=== PATIENT | female | born 1955 | race Asian ===

== ENCOUNTER → 2016-07-22 | Outpatient (CLI) | payer OTHER ==
[~2016-07-22] MED LIST: CELE100C82 PO; VERA240C2 PO
[2016-07-22 12:58] LABS: Basophils # (auto) 0 uL; Basophils % (auto) 0.9 % (0.0-2.0); Eosinophils # (auto) 0.2 uL; Eosinophils % (auto) 4.9 % (0.0-7.0); Hematocrit 42.2 % (36.0-46.0); Hemoglobin 14.3 g/dL (12.2-16.2); Lymphocytes # (auto) 1.8 uL; Lymphocytes % (auto) 40.5 % (10.0-50.0); Mean Corpuscular Hemoglobin 30.1 pg (28.0-32.0); Mean Corpuscular Hgb Conc. 33.9 g/dL (32.0-36.0); Mean Corpuscular Volume 88.7 fL (80.0-100.0); Monocytes # (auto) 0.2 uL; Monocytes % (auto) 5.7 % (0.0-12.0); Neutrophils # (auto) 2.1 uL; Platelet Count (auto) 289 10^3/uL (140-450); Red Cell Distribution Width 13.2 % (11.6-16.0); White Blood Cell 4.3 10^3/uL (4.4-10.8)
[2016-07-22 13:21] LABS: Urine Bilirubin Negative (Negative); Urine Blood Negative /uL (Negative); Urine Color Yellow (Yellow); Urine Glucose Normal (Normal); Urine Ketone Negative (Negative); Urine Nitrite Negative (Negative); Urine Urobilinogen Normal (Negative); Urine pH 6.5 (5.0-8.0)
[2016-07-22 13:26] LABS: Albumin 3.9 g/dL (3.4-5.0); BUN/Creatinine Ratio 22.4; Bilirubin, Direct 0.2 mg/dL (0-0.2); Bilirubin, Total 0.6 mg/dL (0.2-1.0); Calcium 9.1 mg/dL (8.5-10.1); Potassium 4.3 mmol/L (3.5-5.1)
== END | disposition home or self-care (01) ==
LOC: LAB 08:35
PROVIDERS: ATTEND Internal Medicine Cardiovascular Disease
DX: I10 Essential (primary) hypertension (principal); E78.00 Pure hypercholesterolemia, unspecified; K74.1 Hepatic sclerosis; E11.9 Type 2 diabetes mellitus without complications; E03.9 Hypothyroidism, unspecified; D64.9 Anemia, unspecified; E55.9 Vitamin D deficiency, unspecified; N39.0 Urinary tract infection, site not specified
CPT/HCPCS: 36415; 80048; 80061; 80076; 81003; 82306; 83036; 84443; 85025

== ENCOUNTER → 2016-09-09 | Outpatient (CLI) | payer OTHER ==
[2016-09-09 12:50] LABS: Albumin 4.1 g/dL (3.4-5.0); Bilirubin, Direct 0.2 mg/dL (0-0.2); Bilirubin, Total 0.7 mg/dL (0.2-1.0); Total Protein 7.9 g/dL (6.4-8.2)
== END | disposition home or self-care (01) ==
LOC: LAB 08:25
PROVIDERS: ATTEND Internal Medicine Cardiovascular Disease
DX: E78.00 Pure hypercholesterolemia, unspecified (principal); K74.1 Hepatic sclerosis
CPT/HCPCS: 36415; 80061; 80076

== ENCOUNTER → 2016-12-10 | Outpatient (CLI) | payer OTHER ==
[2016-12-10 12:43] LABS: Albumin 4.1 g/dL (3.4-5.0); Bilirubin, Direct 0.2 mg/dL (0-0.2); Bilirubin, Total 0.7 mg/dL (0.2-1.0); Total Protein 8.4 g/dL (6.4-8.2)
== END | disposition home or self-care (01) ==
LOC: LAB 08:30
PROVIDERS: ATTEND Internal Medicine Cardiovascular Disease
DX: E78.00 Pure hypercholesterolemia, unspecified (principal); K74.1 Hepatic sclerosis
CPT/HCPCS: 36415; 80061; 80076

== ENCOUNTER → 2017-07-27 | Outpatient (CLI) | payer OTHER ==
[2017-07-27 14:12] LABS: Albumin 3.7 g/dL (3.4-5.0); Bilirubin, Direct 0.1 mg/dL (0-0.2); Bilirubin, Total 0.4 mg/dL (0.2-1.0); Total Protein 7.5 g/dL (6.4-8.2)
== END | disposition home or self-care (01) ==
LOC: LAB 08:00
PROVIDERS: ATTEND Internal Medicine
DX: R94.5 Abnormal results of liver function studies (principal); I10 Essential (primary) hypertension; E11.9 Type 2 diabetes mellitus without complications; E78.00 Pure hypercholesterolemia, unspecified
CPT/HCPCS: 36415; 80076

== ENCOUNTER → 2018-01-13 | Outpatient (CLI) | payer OTHER ==
[2018-01-13 12:26] LABS: Urine Blood Negative /uL (Negative); Urine Specific Gravity 1.019 (1.001-1.035)
[2018-01-13 12:30] LABS: Albumin 3.7 g/dL (3.4-5.0); BUN/Creatinine Ratio 17.4; Calcium 8.3 mg/dL (8.5-10.1)
[2018-01-13 12:33] LABS: Bilirubin, Total 0.6 mg/dL (0.2-1.0); Total Protein 7.7 g/dL (6.4-8.2)
[2018-01-13 12:36] LABS: Basophils # (auto) 0 uL; Eosinophils # (auto) 0.2 uL; Eosinophils % (auto) 5.6 % (0.0-7.0); Hematocrit 41.3 % (36.0-46.0); Hemoglobin 14.1 g/dL (12.2-16.2); Lymphocytes # (auto) 1.4 uL; Lymphocytes % (auto) 32.5 % (10.0-50.0); Mean Corpuscular Hemoglobin 31.1 pg (28.0-32.0); Mean Corpuscular Hgb Conc. 34.1 g/dL (32.0-36.0); Mean Corpuscular Volume 91.1 fL (80.0-100.0); Monocytes # (auto) 0.3 uL; Monocytes % (auto) 7.1 % (0.0-12.0); Neutrophils # (auto) 2.3 uL; Neutrophils % (auto) 53.8 % (37.0-80.0); Nucleated Red Blood Cells % 0.4 %; Platelet Count (auto) 249 10^3/uL (140-450); Red Blood Cells 4.53 10^6/uL (4.0-5.20); Red Cell Distribution Width 13.2 % (11.8-14.3); White Blood Cell 4.4 10^3/uL (4.4-10.8)
[2018-01-13 12:41] LABS: Free T4 (Free Thyroxine) 1.12 ng/dL (0.89-1.76)
== END | disposition home or self-care (01) ==
LOC: LAB 08:49
PROVIDERS: ATTEND Internal Medicine
DX: E78.5 Hyperlipidemia, unspecified (principal); K74.1 Hepatic sclerosis; I10 Essential (primary) hypertension; E03.9 Hypothyroidism, unspecified; E55.9 Vitamin D deficiency, unspecified; E11.9 Type 2 diabetes mellitus without complications; D51.9 Vitamin B12 deficiency anemia, unspecified; D64.9 Anemia, unspecified; N39.0 Urinary tract infection, site not specified
CPT/HCPCS: 36415; 80053; 80061; 81003; 82306; 82607; 83036; 84439; 84443; 85025; 87086

== ENCOUNTER → 2018-02-10 | Outpatient (CLI) | payer OTHER | END | disposition home or self-care (01) | LOC: Rad HDHVI 09:34 | PROVIDERS: ATTEND Internal Medicine | DX: M85.9 Disorder of bone density and structure, unspecified (principal) | CPT/HCPCS: 77078 ==

== ENCOUNTER → 2019-04-09 | Outpatient (CLI) | payer OTHER ==
[~2019-04-09] MED LIST changes: +LOSA-69 PO
[2019-04-09 09:15] VITALS: BP 130/75
[2019-04-09 09:45] VITALS: BP 149/75
--- NOTE | 2019-04-09 09:45 | NUR ---
Pre-Op Discharge Summary: See e-MAR for any medications given for this visit. Pre-op orders received and carried out per MD of EKG, LABS and chest xrays. Patient given a copy of EKG with instructions to go to [facility] out patient for further follow up care.
[2019-04-09 12:51] LABS: Basophils # (auto) 0 uL; Basophils % (auto) 0.7 % (0.0-2.0); Eosinophils # (auto) 0.1 uL; Eosinophils % (auto) 2.6 % (0.0-7.0); Hematocrit 43.4 % (36.0-46.0); Hemoglobin 14.9 g/dL (12.2-16.2); Lymphocytes # (auto) 1.4 uL; Lymphocytes % (auto) 25.2 % (10.0-50.0); Mean Corpuscular Hemoglobin 30.8 pg (28.0-32.0); Mean Corpuscular Hgb Conc. 34.2 g/dL (32.0-36.0); Mean Corpuscular Volume 90.1 fL (80.0-100.0); Monocytes # (auto) 0.3 uL; Monocytes % (auto) 4.8 % (0.0-12.0); Neutrophils # (auto) 3.7 uL; Neutrophils % (auto) 66.7 % (37.0-80.0); Platelet Count (auto) 218 10^3/uL (140-450); Red Blood Cells 4.82 10^6/uL (4.0-5.20); White Blood Cell 5.6 10^3/uL (4.4-10.8)
[2019-04-09 13:03] LABS: INR 1.01 (0.9-1.15); Partial Thromboplastin Time 28.8 sec (23.64-32.05)
[2019-04-09 13:27] LABS: Potassium 3.8 mmol/L (3.5-5.1)
[2019-04-09 13:58] LABS: BUN/Creatinine Ratio 24.3; Calcium 9.3 mg/dL (8.5-10.1)
== END | disposition home or self-care (01) ==
LOC: Rad HDHVI 08:55
PROVIDERS: ATTEND Internal Medicine Cardiovascular Disease
DX: Z01.812 Encounter for preprocedural laboratory examination (principal); I70.0 Atherosclerosis of aorta; I51.7 Cardiomegaly; I10 Essential (primary) hypertension; E78.5 Hyperlipidemia, unspecified; J90 Pleural effusion, not elsewhere classified
CPT/HCPCS: 36415; 80048; 85025; 85610; 85730; 93005; G0463; 71046

== ENCOUNTER 2019-04-12 07:20 | Day surgery (SDC) | payer OTHER ==
[~2019-04-12] VITALS: Ht 152.4 cm; Wt 54.4 kg
[~2019-04-12 07:20] MED LIST changes: -CELE100C82 PO; -VERA240C2 PO
[2019-04-12] MEDS ORDERED: IOHEXOL 350 MG/ML 100ML IJ ONE (10:44)
[2019-04-12] MEDS ORDERED: MIDAZOLAM HCL 1MG/1ML-2 ML VIAL ONE (10:44)
[2019-04-12] MEDS ORDERED: SODIUM CHL 0.9% 0 ML ONE (10:44)
[2019-04-12] MEDS ORDERED: fentaNYL CITRATE 100 MCG/2 ML VL ONE (10:44)
[2019-04-12] MEDS ORDERED: LIDOCAINE 2%HCL (LOCAL ANESTH.) INJ 20ML MDV ONE (10:44)
[2019-04-12] MEDS ORDERED: ANGIOMAX 250 MG VIAL IV ONE (10:44)
[2019-04-12] MEDS ORDERED: HYDROcodone-ACET 5/325MG TAB PO PRN (12:15)
[2019-04-12] MEDS ORDERED: SODIUM CHL 0.9% 500 ML IV ONE (12:15)
[2019-04-12] MEDS ORDERED: ONDANSETRON HCL 4 MG/2 ML VIAL IV PRN (12:15)
[2019-04-12] MEDS ORDERED: ACETAMINOPHEN 500 MG TAB PO PRN (12:15)
== END 2019-04-12 13:34 | disposition home or self-care (01) ==
LOC: CATH 07:20
PROVIDERS: ATTEND Internal Medicine Cardiovascular Disease
DX: I42.2 Other hypertrophic cardiomyopathy (principal); I10 Essential (primary) hypertension; E78.5 Hyperlipidemia, unspecified; I20.9 Angina pectoris, unspecified; Z86.73 Personal history of transient ischemic attack (TIA), and cerebral infarction without residual deficits
CPT/HCPCS: 93458; C1760; C1894; J1644; J2250; J3010; J7030; Q9967; 99152; 99153

== ENCOUNTER → 2020-05-13 | Outpatient (CLI) | payer OTHER ==
[2020-05-13 11:30] LABS: Basophils # (auto) 0 10 ^3/uL (0-0.2); Eosinophils # (auto) 0.2 10 ^3/uL (0-0.8); Eosinophils % (auto) 4.8 % (0.0-7.0); Hematocrit 38.5 % (36.0-46.0); Hemoglobin 13.5 g/dL (12.2-16.2); Lymphocytes # (auto) 1.5 10 ^3/uL (0.4-5.4); Lymphocytes % (auto) 33.5 % (10.0-50.0); Mean Corpuscular Hemoglobin 31.1 pg (28.0-32.0); Monocytes # (auto) 0.3 10 ^3/uL (0-1.3); Monocytes % (auto) 6.6 % (0.0-12.0); Neutrophils # (auto) 2.4 10 ^3/uL (1.6-8.6); Neutrophils % (auto) 54.1 % (37.0-80.0); Nucleated Red Blood Cells % 0.1 %; Platelet Count (auto) 239 10^3/uL (140-450); Red Blood Cells 4.32 10^6/uL (4.0-5.20); Red Cell Distribution Width 12.7 % (11.8-14.3); White Blood Cell 4.4 10^3/uL (4.4-10.8)
[2020-05-13 11:38] LABS: Urine Blood Negative /uL (Negative); Urine Specific Gravity 1.013 (1.001-1.035)
[2020-05-13 11:44] LABS: Potassium 3.7 mmol/L (3.5-5.1)
[2020-05-13 11:50] LABS: Free T4 (Free Thyroxine) 1.17 ng/dL (0.89-1.76)
[2020-05-13 11:59] LABS: Albumin 3.7 g/dL (3.4-5.0); BUN/Creatinine Ratio 14.5; Bilirubin, Total 0.7 mg/dL (0.2-1.0); Calcium 8.4 mg/dL (8.5-10.1); Total Protein 7.6 g/dL (6.4-8.2)
== END | disposition home or self-care (01) ==
LOC: LAB 08:39
PROVIDERS: ATTEND Internal Medicine Cardiovascular Disease
DX: D51.3 Other dietary vitamin B12 deficiency anemia (principal); I10 Essential (primary) hypertension; E11.9 Type 2 diabetes mellitus without complications; E55.9 Vitamin D deficiency, unspecified; D64.9 Anemia, unspecified; R00.2 Palpitations; R53.1 Weakness; R30.0 Dysuria
CPT/HCPCS: 36415; 80053; 80061; 81003; 82306; 82607; 83036; 84439; 84443; 85025

== ENCOUNTER → 2021-11-20 | Outpatient (CLI) | payer OTHER ==
[2021-11-20 16:29] LABS: Basophils # (auto) 0.1 10 ^3/uL (0-0.2); Eosinophils # (auto) 0.2 10 ^3/uL (0-0.8); Eosinophils % (auto) 3.6 % (0.0-7.0); Hematocrit 45.9 % (36.0-46.0); Hemoglobin 15.3 g/dL (12.2-16.2); Lymphocytes # (auto) 1.6 10 ^3/uL (0.4-5.4); Lymphocytes % (auto) 27.6 % (10.0-50.0); Mean Corpuscular Hemoglobin 30.1 pg (28.0-32.0); Mean Corpuscular Hgb Conc. 33.3 g/dL (32.0-36.0); Mean Corpuscular Volume 90.3 fL (80.0-100.0); Monocytes # (auto) 0.4 10 ^3/uL (0-1.3); Monocytes % (auto) 6.2 % (0.0-12.0); Neutrophils # (auto) 3.6 10 ^3/uL (1.6-8.6); Neutrophils % (auto) 61.6 % (37.0-80.0); Red Blood Cells 5.08 10^6/uL (4.0-5.20); Red Cell Distribution Width 12.5 % (11.8-14.3); White Blood Cell 5.9 10^3/uL (4.4-10.8)
[2021-11-20 16:37] LABS: Urine Blood Negative /uL (Negative); Urine Specific Gravity 1.007 (1.001-1.035)
[2021-11-20 16:46] LABS: Free T4 (Free Thyroxine) 1.33 ng/dL (0.89-1.76)
[2021-11-20 16:58] LABS: Albumin 4.4 g/dL (3.4-5.0); Calcium 9.9 mg/dL (8.5-10.1); Potassium 4.3 mmol/L (3.5-5.1)
[2021-11-20 17:11] LABS: BUN/Creatinine Ratio 16.9; Bilirubin, Total 0.7 mg/dL (0.2-1.0); Total Protein 8.6 g/dL (6.4-8.2)
== END | disposition home or self-care (01) ==
LOC: LAB 13:03
PROVIDERS: ATTEND Internal Medicine Cardiovascular Disease
DX: I10 Essential (primary) hypertension (principal); E55.9 Vitamin D deficiency, unspecified; D64.9 Anemia, unspecified; D51.3 Other dietary vitamin B12 deficiency anemia; E11.9 Type 2 diabetes mellitus without complications; R00.2 Palpitations; R53.1 Weakness; R30.0 Dysuria
CPT/HCPCS: 36415; 80053; 80061; 81003; 82306; 82607; 83036; 84439; 84443; 85025

== ENCOUNTER → 2021-12-14 | Outpatient (CLI) | payer MEDICARE, OTHER | END | disposition home or self-care (01) | LOC: Rad HDHVI 15:41 | PROVIDERS: ATTEND Internal Medicine Cardiovascular Disease | DX: I08.3 Combined rheumatic disorders of mitral, aortic and tricuspid valves (principal); R00.2 Palpitations; R00.1 Bradycardia, unspecified | CPT/HCPCS: 93306 ==

== ENCOUNTER → 2022-01-25 | Outpatient (CLI) | payer MEDICARE, OTHER ==
[~2022-01-25] VITALS: Ht 152.4 cm; Wt 49.9 kg
== END | disposition home or self-care (01) ==
LOC: Rad HDHVI 09:27
PROVIDERS: ATTEND Internal Medicine Cardiovascular Disease
DX: I35.0 Nonrheumatic aortic (valve) stenosis (principal); R00.2 Palpitations; I10 Essential (primary) hypertension; R00.1 Bradycardia, unspecified; E78.00 Pure hypercholesterolemia, unspecified
CPT/HCPCS: 78452; 93017; 96374; A9500

== ENCOUNTER → 2023-04-26 | Outpatient (CLI) | payer MEDICARE, OTHER ==
[~2023-04-26] MED LIST changes: -LOSA-69 PO; +LOSA50TA46 PO
== END | disposition home or self-care (01) ==
LOC: Rad HDHVI 08:38
PROVIDERS: ATTEND Internal Medicine Cardiovascular Disease
DX: I08.8 Other rheumatic multiple valve diseases (principal); I11.9 Hypertensive heart disease without heart failure; R06.02 Shortness of breath
CPT/HCPCS: 93306

== ENCOUNTER → 2023-09-14 | Outpatient (CLI) | payer MEDICARE, OTHER ==
[~2023-09-14] MED LIST changes: +GLUC1TAB18 PO; +LOSA-534 PO; -LOSA50TA46 PO; +MAGN400T40 PO
[2023-09-14 09:30] VITALS: BP 140/70; PULSE 48; RESP 18; O2SAT 97
[2023-09-14 09:45] VITALS: BP 140/65; PULSE 52; RESP 18; O2SAT 97
== END | disposition home or self-care (01) ==
LOC: Rad HDHVI 08:55
PROVIDERS: ATTEND Internal Medicine Cardiovascular Disease
DX: Z01.818 Encounter for other preprocedural examination (principal); I51.7 Cardiomegaly; I49.5 Sick sinus syndrome; I42.1 Obstructive hypertrophic cardiomyopathy; J92.9 Pleural plaque without asbestos; R00.1 Bradycardia, unspecified; R94.31 Abnormal electrocardiogram [ECG] [EKG]
CPT/HCPCS: 71046; 93005; G0463

== ENCOUNTER 2023-09-15 06:34 | Day surgery (SDC) | payer MEDICARE, OTHER ==
[2023-09-14 11:58] LABS: Basophils # (auto) 0.1 10 ^3/uL (0-0.2); Basophils % (auto) 1.2 % (0.0-2.0); Eosinophils # (auto) 0.2 10 ^3/uL (0-0.8); Hematocrit 31.7 % (36.0-46.0); Hemoglobin 9.9 g/dL (12.2-16.2); Lymphocytes # (auto) 1.5 10 ^3/uL (0.4-5.4); Mean Corpuscular Hemoglobin 24.3 pg (28.0-32.0); Mean Corpuscular Hgb Conc. 31.3 g/dL (32.0-36.0); Mean Corpuscular Volume 77.4 fL (80.0-100.0); Monocytes # (auto) 0.3 10 ^3/uL (0-1.3); Monocytes % (auto) 6.5 % (0.0-12.0); Neutrophils # (auto) 2.4 10 ^3/uL (1.6-8.6); Neutrophils % (auto) 54.3 % (37.0-80.0); Nucleated Red Blood Cells % 0.1 %; Red Cell Distribution Width 15.2 % (11.8-14.3); White Blood Cell 4.4 10^3/uL (4.4-10.8)
[2023-09-14 12:14] LABS: INR 1.02 (0.9-1.15); Partial Thromboplastin Time 25.9 SEC (24.5-34.5); Prothrombin Time 10.8 sec (9.3-11.8)
[2023-09-14 12:32] LABS: Chloride 108 mmol/L (98-107); Potassium 4.3 mmol/L (3.5-5.1); Sodium 141 mmol/L (136-145)
[2023-09-14 12:33] LABS: Anion Gap 1 (5-15); Carbon Dioxide 32 mmol/L (20-30)
[2023-09-14 12:34] LABS: Calcium 9.7 mg/dL (8.5-10.1)
[2023-09-14 12:38] LABS: BUN/Creatinine Ratio 18.2 (10.0-20.0); Blood Urea Nitrogen 14 mg/dL (9-23); Glucose 101 mg/dL (74-106)
[~2023-09-15] VITALS: Ht 157.5 cm; Wt 50.8 kg
[2023-09-15] VITALS (7 sets, daily range): BP systolic 135–140; BP diastolic 66–80; PULSE 60–72; RESP 12–18; O2SAT 95–96
[2023-09-15] MEDS ORDERED: VANCOMYCIN HCL 1000 MG VL ONE (09:05)
[2023-09-15] MEDS ORDERED: fentaNYL CITRATE 100 MCG/2 ML VL ONE (09:05)
[2023-09-15] MEDS ORDERED: VANCOMYCIN 1GM/200ML 200 ML IV ONE (09:06)
[2023-09-15] MEDS ORDERED: MIDAZOLAM HCL 2MG/2ML 2ml VIAL (1mg/ml) ONE (09:06)
[2023-09-15] MEDS ORDERED: LIDOCAINE 2%HCL (LOCAL ANESTH.) INJ 20ML MDV ONE (09:06)
== END 2023-09-15 11:58 | disposition home or self-care (01) ==
LOC: CATH 06:34
PROVIDERS: ATTEND Internal Medicine Cardiovascular Disease
DX: I48.91 Unspecified atrial fibrillation (principal); Z79.899 Other long term (current) drug therapy; Z98.890 Other specified postprocedural states
CPT/HCPCS: 33208; 36415; 71045; 80048; 85025; 85610; 85730; 93005; C1785; C1898; J2250; J3010; J3370; J7030; 99152; 99153

== ENCOUNTER → 2023-09-16 | Outpatient (CLI) | payer MEDICARE, OTHER | END | disposition home or self-care (01) | LOC: Rad HDHVI 10:29 | PROVIDERS: ATTEND Internal Medicine Cardiovascular Disease | DX: Z01.818 Encounter for other preprocedural examination (principal); R91.8 Other nonspecific abnormal finding of lung field | CPT/HCPCS: 71046 ==

== ENCOUNTER 2023-12-27 13:37 | Inpatient (IN) | payer MEDICARE, OTHER ==
[~2023-12-27] VITALS: Ht 152.4 cm; Wt 57.8 kg
[2023-12-27] MEDS ORDERED: ASPI-325 PO (20:46)
[2023-12-27 21:47] LABS: Basophils # (auto) 0 10 ^3/uL (0-0.2); Eosinophils # (auto) 0 10 ^3/uL (0-0.8); Hemoglobin 8.5 g/dL (12.2-16.2); Lymphocytes # (auto) 1.1 10 ^3/uL (0.4-5.4); Nucleated Red Blood Cells % 0.1 %
[2023-12-27 21:49] LABS: Basophils % (auto) 0.1 % (0.0-2.0); Eosinophils % (auto) 0.4 % (0.0-7.0); Hematocrit 25.8 % (36.0-46.0); Lymphocytes % (auto) 15.2 % (10.0-50.0); Mean Corpuscular Hemoglobin 25.2 pg (28.0-32.0); Mean Corpuscular Volume 76.2 fL (80.0-100.0); Monocytes # (auto) 0.6 10 ^3/uL (0-1.3); Monocytes % (auto) 7.8 % (0.0-12.0); Neutrophils # (auto) 5.6 10 ^3/uL (1.6-8.6); Neutrophils % (auto) 76.5 % (37.0-80.0); Platelet Count (auto) 444 10^3/uL (140-450); Red Blood Cells 3.38 10^6/uL (4.0-5.20); White Blood Cell 7.3 10^3/uL (4.4-10.8)
[2023-12-27 21:51] LABS: Red Cell Distribution Width 22.6 % (11.8-14.3)
[2023-12-27 22:10] LABS: Alanine Aminotransferase 36 U/L (7-40); Albumin 3.4 g/dL (3.2-4.8); Alkaline Phosphatase 252 U/L (46-116); Anion Gap 4 (5-15); Aspartate Aminotransferase 34 U/L (13-40); BUN/Creatinine Ratio 26.8 (10.0-20.0); Bilirubin, Total 0.4 mg/dL (0.2-1.0); Blood Urea Nitrogen 15 mg/dL (9-23); Calcium 8.3 mg/dL (8.7-10.4); Carbon Dioxide 25 mmol/L (20-30); Chloride 96 mmol/L (98-107); Glucose 105 mg/dL (74-106); Potassium 3.9 mmol/L (3.5-5.1); Sodium 125 mmol/L (136-145); Total Protein 5.4 g/dL (5.7-8.2)
[2023-12-27 22:20] LABS: INR 1.03 (0.9-1.15); Prothrombin Time 10.9 sec (9.3-11.8)
[2023-12-27 23:02] VITALS: BP 140/80; PULSE 83; PULSE 85; RESP 18; RESP 19; TEMP 98; O2SAT 96; O2SAT 98
[2023-12-28] VITALS (9 sets, daily range): BP systolic 116–146; BP diastolic 63–91; PULSE 73–84; RESP 16–20; TEMP 97.7–98.6; O2SAT 96–98
[2023-12-28 01:49] LABS: Urine Bacteria None Seen /hpf (None Seen)
[2023-12-28 01:58] LABS: Urine Blood Negative /uL (Negative); Urine Clarity Clear (Clear); Urine Color Light-Yellow (Yellow); Urine Protein, UAD Negative (Negative); Urine Specific Gravity 1.007 (1.001-1.035); Urine Urobilinogen Normal (Negative); Urine WBC 1 /hpf (0 - 5)
[2023-12-28] MEDS ORDERED: ONDANSETRON HCL 4 MG/2 ML VIAL IV PRN (04:30)
[2023-12-28] MEDS: SODIUM CHLORIDE 0.9% 1,000 ML IV SCH (06:31)
[2023-12-28 08:29] LABS: Basophils # (auto) 0 10 ^3/uL (0-0.2); Basophils % (auto) 0.3 % (0.0-2.0); Eosinophils # (auto) 0 10 ^3/uL (0-0.8); Hemoglobin 8.4 g/dL (12.2-16.2); Monocytes # (auto) 0.5 10 ^3/uL (0-1.3)
[2023-12-28 08:30] LABS: Eosinophils % (auto) 0.4 % (0.0-7.0); Lymphocytes % (auto) 16.9 % (10.0-50.0); Mean Corpuscular Hemoglobin 25.4 pg (28.0-32.0); Mean Corpuscular Hgb Conc. 33.4 g/dL (32.0-36.0); Mean Corpuscular Volume 76.1 fL (80.0-100.0); Monocytes % (auto) 8.1 % (0.0-12.0); Neutrophils # (auto) 4.6 10 ^3/uL (1.6-8.6); Neutrophils % (auto) 74.3 % (37.0-80.0); Platelet Count (auto) 426 10^3/uL (140-450); Red Blood Cells 3.29 10^6/uL (4.0-5.20); White Blood Cell 6.2 10^3/uL (4.4-10.8)
[2023-12-28] MEDS: GASTROGRAFIN 120 ML SOL ONE (08:35)
[2023-12-28 08:46] LABS: Alanine Aminotransferase 33 U/L (7-40); Albumin 3.2 g/dL (3.2-4.8); Alkaline Phosphatase 238 U/L (46-116); Anion Gap 7 (5-15); Aspartate Aminotransferase 27 U/L (13-40); Bilirubin, Total 0.4 mg/dL (0.2-1.0); Blood Urea Nitrogen 12 mg/dL (9-23); Calcium 8.5 mg/dL (8.7-10.4); Carbon Dioxide 24 mmol/L (20-30); Chloride 100 mmol/L (98-107); Glucose 86 mg/dL (74-106); Potassium 4.3 mmol/L (3.5-5.1); Total Protein 5.2 g/dL (5.7-8.2)
[2023-12-28 08:54] LABS: Sodium 131 mmol/L (136-145)
[2023-12-28 08:59] LABS: Free T3 2.03 pg/mL (2.3-4.2)
[2023-12-28 09:00] LABS: Free T4 (Free Thyroxine) 1.26 ng/dL (0.89-1.76)
[2023-12-28 09:05] LABS: % Iron Saturation 5.5 % (15-50)
[2023-12-28] MEDS: LEVOTHYROXINE SODIUM 100 MCG/5 ML INJ IV ONE (11:31)
[2023-12-28] MEDS: IRON SUCROSE COMPLEX 100 ML IV SCH (13:12)
[2023-12-28] MEDS: PIPERACILLIN-TAZOB 3.375GM 100 ML IV SCH (14:40)
[2023-12-28] MEDS ORDERED: PIPERACILLIN-TAZOB 3.375GM 100 ML IV SCH (18:00)
[2023-12-29 01:00] VITALS: BP 138/73; PULSE 83; RESP 16; TEMP 98.7; O2SAT 95
[2023-12-29 05:00] VITALS: BP 124/66; PULSE 81; RESP 18; TEMP 98.6; O2SAT 96
[2023-12-29] MEDS: PANTOPRAZOLE 40 MG/10 ML VIAL INJ IV SCH (08:42)
[2023-12-29] MEDS: ENOXAPARIN SOD 40 MG/0.4 ML SYRINGE SC SCH (08:43)
[2023-12-29 09:05] VITALS: BP 132/86; PULSE 82; RESP 16; TEMP 98.6; O2SAT 97
[2023-12-29 09:35] LABS: Basophils # (auto) 0 10 ^3/uL (0-0.2); Basophils % (auto) 0.3 % (0.0-2.0); Eosinophils # (auto) 0 10 ^3/uL (0-0.8); Eosinophils % (auto) 0.2 % (0.0-7.0); Lymphocytes # (auto) 0.8 10 ^3/uL (0.4-5.4); Monocytes # (auto) 0.4 10 ^3/uL (0-1.3); Neutrophils # (auto) 5.5 10 ^3/uL (1.6-8.6); Nucleated Red Blood Cells % 0.1 %; White Blood Cell 6.8 10^3/uL (4.4-10.8)
[2023-12-29 09:37] LABS: Hematocrit 26.5 % (36.0-46.0); Hemoglobin 8.7 g/dL (12.2-16.2); Lymphocytes % (auto) 12.1 % (10.0-50.0); Mean Corpuscular Hemoglobin 25.4 pg (28.0-32.0); Mean Corpuscular Hgb Conc. 32.7 g/dL (32.0-36.0); Mean Corpuscular Volume 77.7 fL (80.0-100.0); Monocytes % (auto) 5.8 % (0.0-12.0); Neutrophils % (auto) 81.6 % (37.0-80.0); Platelet Count (auto) 435 10^3/uL (140-450); Red Blood Cells 3.41 10^6/uL (4.0-5.20)
[2023-12-29 09:41] LABS: Chloride 100 mmol/L (98-107); Potassium 4.8 mmol/L (3.5-5.1); Sodium 135 mmol/L (136-145)
[2023-12-29 09:42] LABS: Anion Gap 10 (5-15); Carbon Dioxide 25 mmol/L (20-31)
[2023-12-29 09:43] LABS: Calcium 8.8 mg/dL (8.7-10.4); Red Cell Distribution Width 24.1 % (11.8-14.3)
[2023-12-29 09:47] LABS: Glucose 85 mg/dL (74-106)
[2023-12-29 09:48] LABS: BUN/Creatinine Ratio 22.2 (10.0-20.0); Blood Urea Nitrogen 12 mg/dL (9-23)
[2023-12-29] MEDS ORDERED: LOSARTAN POTASSIUM 50 MG TAB PO SCH (10:00)
[2023-12-29] MEDS: FLEET ENEMA(ADULT) 135 ML PR ONE ×2 (10:52→15:16)
[2023-12-29 13:18] VITALS: BP 141/82; PULSE 83; RESP 16; TEMP 98.2; O2SAT 96
[2023-12-29] MEDS: SODIUM FERR GLUC 62.5MG/5ML 110 ML IV ONE (15:54)
[2023-12-29] MEDS ORDERED: TPN PER PHARMACY 0 ML IV SCH (19:00)
[2023-12-29 20:00] VITALS: PULSE 124
[2023-12-29] MEDS ORDERED: DEXTROSE (50%) 50ML SYRG IV SCH (20:00)
[2023-12-29 21:00] VITALS: BP 134/85; PULSE 81; RESP 16; TEMP 97.5; O2SAT 97
[2023-12-29] MEDS: ACCU-CHEK COMFORT CURVE STRIP VI SCH (23:12)
[2023-12-29] MEDS: InsuLIN REG 1unit/0.01ml Soln (100units/ml) SC SCH (23:14)
[2023-12-30] VITALS (8 sets, daily range): BP systolic 122–144; BP diastolic 62–90; PULSE 61–86; RESP 13–22; TEMP 97–98.3; O2SAT 95–100
[2023-12-30] MEDS: AMINO ACID INFUSION IN D10W 1,000 ML IV ONE (00:08)
[2023-12-30] MEDS ORDERED: fentaNYL CITRATE 100 MCG/2 ML VL ONE (08:34)
[2023-12-30] MEDS ORDERED: DexAMETHasone SOD PHOS 10MG/1ML VIAL INJ ONE (08:38)
[2023-12-30] MEDS ORDERED: PROPOFOL 10 MG/ML 20 ML IV ONE (08:44)
[2023-12-30 09:06] LABS: Alanine Aminotransferase 19 U/L (7-40); Alkaline Phosphatase 201 U/L (46-116); Anion Gap 12 (5-15); Blood Urea Nitrogen 6 mg/dL (9-23); Calcium 8.5 mg/dL (8.7-10.4); Carbon Dioxide 18 mmol/L (20-31); Chloride 101 mmol/L (98-107); Glucose 83 mg/dL (74-106); Magnesium 2.4 mg/dL (1.6-2.6); Sodium 131 mmol/L (136-145); Triglycerides 135 mg/dL (< 150)
[2023-12-30 09:07] LABS: Albumin 2.9 g/dL (3.2-4.8); Aspartate Aminotransferase 17 U/L (13-40); Bilirubin, Total 0.4 mg/dL (0.2-1.0); Phosphorus 2.7 mg/dL (2.4-5.1)
[2023-12-30 09:08] LABS: Total Protein 5.2 g/dL (5.7-8.2)
[2023-12-30 12:03] LABS: Basophils # (auto) 0 10 ^3/uL (0-0.2); Basophils % (auto) 0.3 % (0.0-2.0); Eosinophils # (auto) 0 10 ^3/uL (0-0.8); Eosinophils % (auto) 0.3 % (0.0-7.0); Hematocrit 25.9 % (36.0-46.0); Hemoglobin 8.5 g/dL (12.2-16.2); Lymphocytes # (auto) 0.5 10 ^3/uL (0.4-5.4); Lymphocytes % (auto) 7.9 % (10.0-50.0); Mean Corpuscular Hemoglobin 25.7 pg (28.0-32.0); Mean Corpuscular Hgb Conc. 32.8 g/dL (32.0-36.0); Mean Corpuscular Volume 78.4 fL (80.0-100.0); Monocytes # (auto) 0.2 10 ^3/uL (0-1.3); Monocytes % (auto) 2.6 % (0.0-12.0); Neutrophils % (auto) 88.9 % (37.0-80.0); Nucleated Red Blood Cells % 0.3 %; Platelet Count (auto) 469 10^3/uL (140-450); White Blood Cell 6.7 10^3/uL (4.4-10.8)
[2023-12-30 12:05] LABS: Red Cell Distribution Width 23.4 % (11.8-14.3)
[2023-12-30 14:20] LABS: INR 1.06 (0.9-1.15); Partial Thromboplastin Time 30.5 SEC (24.5-34.5); Prothrombin Time 11.2 sec (9.3-11.8)
[2023-12-30] MEDS: LIDOCAINE 1% (LOCAL ANESTH.) PF 5ml SDV ID ONE (16:05)
[2023-12-30] MEDS: TPN PER PHARMACY IV NR (20:40)
[2023-12-31] MEDS: SODIUM CHLOR 0.9% PF (SALINE LOCK) 10ML VIAL/SYR IV SCH (00:09)
[2023-12-31 01:01] VITALS: BP 144/73; PULSE 80; RESP 17; TEMP 97.8; O2SAT 95
[2023-12-31 04:50] VITALS: BP 121/72; PULSE 73; RESP 20; TEMP 97.9; O2SAT 97
[2023-12-31 08:12] LABS: Basophils # (auto) 0 10 ^3/uL (0-0.2); Basophils % (auto) 0.1 % (0.0-2.0); Eosinophils # (auto) 0 10 ^3/uL (0-0.8); Hematocrit 27.1 % (36.0-46.0); Lymphocytes # (auto) 0.7 10 ^3/uL (0.4-5.4); Lymphocytes % (auto) 8.1 % (10.0-50.0); Mean Corpuscular Hemoglobin 25.7 pg (28.0-32.0); Mean Corpuscular Hgb Conc. 33.3 g/dL (32.0-36.0); Mean Corpuscular Volume 77.1 fL (80.0-100.0); Monocytes # (auto) 0.6 10 ^3/uL (0-1.3); Monocytes % (auto) 6.7 % (0.0-12.0); Neutrophils # (auto) 7.2 10 ^3/uL (1.6-8.6); Neutrophils % (auto) 85.1 % (37.0-80.0); Nucleated Red Blood Cells % 0.2 %; Platelet Count (auto) 463 10^3/uL (140-450); Red Blood Cells 3.52 10^6/uL (4.0-5.20); White Blood Cell 8.4 10^3/uL (4.4-10.8)
[2023-12-31 08:13] LABS: Red Cell Distribution Width 23.3 % (11.8-14.3)
[2023-12-31 08:27] LABS: Alanine Aminotransferase 17 U/L (7-40); Albumin 3.4 g/dL (3.2-4.8); Alkaline Phosphatase 189 U/L (46-116); Anion Gap 7 (5-15); Aspartate Aminotransferase 12 U/L (13-40); BUN/Creatinine Ratio 26.8 (10.0-20.0); Bilirubin, Total 0.4 mg/dL (0.2-1.0); Blood Urea Nitrogen 15 mg/dL (9-23); Calcium 8.9 mg/dL (8.7-10.4); Carbon Dioxide 29 mmol/L (20-31); Chloride 99 mmol/L (98-107); Glucose 181 mg/dL (74-106); Phosphorus 1.4 mg/dL (2.4-5.1); Potassium 3.1 mmol/L (3.5-5.1); Sodium 135 mmol/L (136-145); Total Protein 5.5 g/dL (5.7-8.2)
[2023-12-31 09:00] VITALS: BP 103/65; PULSE 72; RESP 18; TEMP 97.4; O2SAT 97
[2023-12-31 13:00] VITALS: BP 109/74; PULSE 65; RESP 16; TEMP 98.2; O2SAT 96
[2023-12-31] MEDS: POTASSIUM CHLORIDE 40 MEQ, LIDOCAINE 1% (LOCAL ANESTH.) 4 ML in SODIUM CHL 0.9% 250 ML IV ONE (14:03)
[2023-12-31 15:27] LABS: Chloride 102 mmol/L (98-107); Potassium 3.5 mmol/L (3.5-5.1); Sodium 134 mmol/L (136-145)
[2023-12-31 15:28] LABS: Anion Gap 2 (5-15); Calcium 8.5 mg/dL (8.7-10.4); Carbon Dioxide 30 mmol/L (20-31)
[2023-12-31 15:33] LABS: BUN/Creatinine Ratio 32.7 (10.0-20.0); Blood Urea Nitrogen 16 mg/dL (9-23); Glucose 105 mg/dL (74-106)
[2023-12-31 17:00] VITALS: BP 110/67; PULSE 77; RESP 15; TEMP 97.9; O2SAT 97
[2023-12-31] MEDS: POTASSIUM PHOSPHATE 44 MEQ in D5W 5% 250 ML IV ONE (18:06)
[2023-12-31] MEDS: TPN PER PHARMACY IV NR (19:47)
[2023-12-31 21:00] VITALS: BP 123/68; PULSE 66; RESP 20; TEMP 97.6; O2SAT 96
[2024-01-01] VITALS (7 sets, daily range): BP systolic 94–111; BP diastolic 54–68; PULSE 62–68; RESP 16–18; TEMP 97.7–98.7; O2SAT 96–98
[2024-01-01 07:07] LABS: Alanine Aminotransferase 14 U/L (7-40); Albumin 3.1 g/dL (3.2-4.8); Alkaline Phosphatase 154 U/L (46-116); Anion Gap 6 (5-15); Aspartate Aminotransferase 14 U/L (13-40); BUN/Creatinine Ratio 42.9 (10.0-20.0); Blood Urea Nitrogen 21 mg/dL (9-23); Calcium 8.6 mg/dL (8.7-10.4); Carbon Dioxide 27 mmol/L (20-31); Chloride 103 mmol/L (98-107); Glucose 141 mg/dL (74-106); Phosphorus 3.2 mg/dL (2.4-5.1); Potassium 4.9 mmol/L (3.5-5.1); Sodium 136 mmol/L (136-145)
[2024-01-01 07:08] LABS: Bilirubin, Total 0.3 mg/dL (0.2-1.0)
[2024-01-01] MEDS: MORPHINE SULFATE INJ 2 MG/ml SYRG IV PRN (12:01)
[2024-01-01] MEDS: TPN PER PHARMACY IV NR (19:50)
[2024-01-01 23:36] LABS: Urine Bacteria None Seen /hpf (None Seen)
[2024-01-01 23:43] LABS: Urine Blood Negative /uL (Negative); Urine Clarity Clear (Clear); Urine Color Yellow (Yellow); Urine Mucus FEW (None Seen); Urine Protein, UAD Negative (Negative); Urine Specific Gravity 1.027 (1.001-1.035); Urine Urobilinogen Normal (Negative); Urine WBC 10 /hpf (0 - 5); Urine pH 5.5 (5.0-9.0)
[2024-01-02] VITALS (8 sets, daily range): BP systolic 102–127; BP diastolic 70–83; PULSE 69–83; RESP 17–20; TEMP 97.8–98; O2SAT 97–100
[2024-01-02 07:55] LABS: Basophils # (auto) 0 10 ^3/uL (0-0.2); Basophils % (auto) 0.5 % (0.0-2.0); Hemoglobin 8.8 g/dL (12.2-16.2); Monocytes # (auto) 0.6 10 ^3/uL (0-1.3); Neutrophils # (auto) 3.1 10 ^3/uL (1.6-8.6); Red Blood Cells 3.38 10^6/uL (4.0-5.20)
[2024-01-02 07:58] LABS: Eosinophils # (auto) 0.1 10 ^3/uL (0-0.8); Eosinophils % (auto) 1.2 % (0.0-7.0); Hematocrit 26.7 % (36.0-46.0); Lymphocytes % (auto) 20.5 % (10.0-50.0); Mean Corpuscular Hemoglobin 26.1 pg (28.0-32.0); Mean Corpuscular Hgb Conc. 33.1 g/dL (32.0-36.0); Mean Corpuscular Volume 78.9 fL (80.0-100.0); Monocytes % (auto) 12.8 % (0.0-12.0); Nucleated Red Blood Cells % 0.5 %; Platelet Count (auto) 342 10^3/uL (140-450); White Blood Cell 4.8 10^3/uL (4.4-10.8)
[2024-01-02 08:09] LABS: Red Cell Distribution Width 24.1 % (11.8-14.3)
[2024-01-02 08:19] LABS: Alanine Aminotransferase 66 U/L (7-40); Albumin 3.2 g/dL (3.2-4.8); Alkaline Phosphatase 165 U/L (46-116); Anion Gap 7 (5-15); Aspartate Aminotransferase 128 U/L (13-40); BUN/Creatinine Ratio 35.3 (10.0-20.0); Blood Urea Nitrogen 18 mg/dL (9-23); Calcium 8.1 mg/dL (8.7-10.4); Carbon Dioxide 26 mmol/L (20-31); Chloride 102 mmol/L (98-107); Glucose 130 mg/dL (74-106); Magnesium 2.2 mg/dL (1.6-2.6); Potassium 4.3 mmol/L (3.5-5.1); Sodium 135 mmol/L (136-145)
[2024-01-02 08:20] LABS: Bilirubin, Total 0.6 mg/dL (0.2-1.0); Phosphorus 3.2 mg/dL (2.4-5.1); Total Protein 5.2 g/dL (5.7-8.2)
[2024-01-02] MEDS: SUCCINYLCHOLINE CHLORIDE 20 MG/ML 10ML VIAL IV ONE (10:33)
[2024-01-02] MEDS ORDERED: MIDAZOLAM HCL 2MG/2ML 2ml VIAL (1mg/ml) ONE (10:37)
[2024-01-02] MEDS ORDERED: fentaNYL CITRATE 100 MCG/2 ML VL ONE (10:37)
[2024-01-02] MEDS ORDERED: MEPERIDINE HCL (50 MG/ML) 1 ML VIAL ONE (10:38)
[2024-01-02] MEDS: metroNIDAZOLE 500MG/100ML 100 ML IV ONE (10:52)
[2024-01-02] MEDS ORDERED: DexAMETHasone SOD PHOS 10MG/1ML VIAL INJ ONE (11:21)
[2024-01-02] MEDS ORDERED: ETOMIDATE (2MG/ML) 20ML VIAL IV ONE (11:21)
[2024-01-02] MEDS ORDERED: ePHEDrine SULFATE 50 MG/ML AMP IV PRN (12:15)
[2024-01-02] MEDS: ONDANSETRON HCL 4 MG/2 ML VIAL IV ONE (12:15)
[2024-01-02] MEDS ORDERED: HYDROmorphone HCL 2 MG/ML VL/or syr IV PRN (12:15)
[2024-01-02] MEDS ORDERED: MIDAZOLAM HCL 2MG/2ML 2ml VIAL (1mg/ml) IV PRN (12:15)
[2024-01-02] MEDS ORDERED: MORPHINE SULFATE 4 MG/ML SYR/VIAL IV PRN (12:15)
[2024-01-02] MEDS ORDERED: hydrALAZINE HCL 20 MG/ML VL IV PRN (12:15)
[2024-01-02] MEDS: POVIDONE IODINE 10 % TOPICAL OINT 30GM TOP ONE (12:32)
[2024-01-02] MEDS ORDERED: SUGAMMADEX 200mg/2ml Vial (100MG/ML) IV ONE (12:55)
[2024-01-02] MEDS ORDERED: ONDANSETRON HCL 4 MG/2 ML VIAL IV PRN (13:00)
[2024-01-02] MEDS: metroNIDAZOLE 500MG/100ML 100 ML IV SCH (14:00)
[2024-01-02] MEDS: TPN PER PHARMACY IV NR (21:01)
[2024-01-03] VITALS (13 sets, daily range): BP systolic 111–151; BP diastolic 60–81; PULSE 74–88; RESP 17–20; TEMP 97.2–98.6; O2SAT 94–100
[2024-01-03 06:07] LABS: Basophils # (auto) 0 10 ^3/uL (0-0.2); Eosinophils # (auto) 0 10 ^3/uL (0-0.8); Monocytes # (auto) 0.8 10 ^3/uL (0-1.3); Neutrophils # (auto) 10.1 10 ^3/uL (1.6-8.6); Nucleated Red Blood Cells % 0.1 %
[2024-01-03 06:08] LABS: Hematocrit 21.5 % (36.0-46.0); Hemoglobin 7.1 g/dL (12.2-16.2); Lymphocytes # (auto) 0.8 10 ^3/uL (0.4-5.4); Mean Corpuscular Hemoglobin 26.3 pg (28.0-32.0); Mean Corpuscular Volume 79.7 fL (80.0-100.0); Monocytes % (auto) 7.1 % (0.0-12.0); Neutrophils % (auto) 85.9 % (37.0-80.0); Platelet Count (auto) 287 10^3/uL (140-450); White Blood Cell 11.8 10^3/uL (4.4-10.8)
[2024-01-03 06:17] LABS: Red Cell Distribution Width 24.1 % (11.8-14.3)
[2024-01-03 06:25] LABS: Alanine Aminotransferase 68 U/L (7-40); Albumin 2.7 g/dL (3.2-4.8); Alkaline Phosphatase 125 U/L (46-116); Anion Gap 4 (5-15); Aspartate Aminotransferase 76 U/L (13-40); BUN/Creatinine Ratio 43.1 (10.0-20.0); Blood Urea Nitrogen 22 mg/dL (9-23); Calcium 8.1 mg/dL (8.7-10.4); Carbon Dioxide 27 mmol/L (20-31); Chloride 104 mmol/L (98-107); Glucose 211 mg/dL (74-106); Magnesium 2.2 mg/dL (1.6-2.6); Potassium 4.1 mmol/L (3.5-5.1); Sodium 135 mmol/L (136-145)
[2024-01-03 06:26] LABS: Bilirubin, Total 0.8 mg/dL (0.2-1.0); Phosphorus 2.2 mg/dL (2.4-5.1); Total Protein 4.4 g/dL (5.7-8.2)
[2024-01-03 08:34] LABS: Hematocrit 21.5 % (36.0-46.0); Hemoglobin 7.1 g/dL (12.2-16.2)
[2024-01-03 09:30] LABS: Anisocytosis Moderate; Platelet Estimate Adequate
[2024-01-03] MEDS ORDERED: PANTOPRAZOLE 40 MG/10 ML VIAL INJ IV SCH (10:00)
[2024-01-03] MEDS: POTASSIUM PHOSPHATE 22 MEQ in SODIUM CHL 0.9% 100 ML IV ONE (16:36)
[2024-01-03] MEDS: TPN PER PHARMACY IV NR (20:15)
[2024-01-04] VITALS (7 sets, daily range): BP systolic 110–152; BP diastolic 65–81; PULSE 74–87; RESP 2–20; TEMP 97.6–98.5; O2SAT 96
[2024-01-04 07:36] LABS: Basophils # (auto) 0 10 ^3/uL (0-0.2); Eosinophils # (auto) 0.1 10 ^3/uL (0-0.8); Lymphocytes # (auto) 0.9 10 ^3/uL (0.4-5.4); Monocytes # (auto) 0.6 10 ^3/uL (0-1.3); White Blood Cell 10.5 10^3/uL (4.4-10.8)
[2024-01-04 07:41] LABS: Basophils % (auto) 0.2 % (0.0-2.0); Eosinophils % (auto) 0.7 % (0.0-7.0); Hemoglobin 9.1 g/dL (12.2-16.2); Lymphocytes % (auto) 8.9 % (10.0-50.0); Mean Corpuscular Hemoglobin 27.3 pg (28.0-32.0); Mean Corpuscular Hgb Conc. 33.7 g/dL (32.0-36.0); Neutrophils # (auto) 8.8 10 ^3/uL (1.6-8.6); Neutrophils % (auto) 84.2 % (37.0-80.0); Platelet Count (auto) 207 10^3/uL (140-450); Red Blood Cells 3.33 10^6/uL (4.0-5.20)
[2024-01-04 07:46] LABS: Alanine Aminotransferase 51 U/L (7-40); Albumin 2.8 g/dL (3.2-4.8); Alkaline Phosphatase 125 U/L (46-116); Anion Gap 6 (5-15); Aspartate Aminotransferase 33 U/L (13-40); BUN/Creatinine Ratio 40.5 (10.0-20.0); Blood Urea Nitrogen 17 mg/dL (9-23); Calcium 8.2 mg/dL (8.7-10.4); Carbon Dioxide 27 mmol/L (20-31); Chloride 104 mmol/L (98-107); Glucose 127 mg/dL (74-106); Potassium 3.2 mmol/L (3.5-5.1); Sodium 137 mmol/L (136-145)
[2024-01-04 07:47] LABS: Bilirubin, Total 0.6 mg/dL (0.2-1.0); Phosphorus 2.3 mg/dL (2.4-5.1); Total Protein 4.6 g/dL (5.7-8.2)
[2024-01-04 07:55] LABS: Red Cell Distribution Width 21.1 % (11.8-14.3)
[2024-01-04] MEDS ORDERED: POTASSIUM CHL 20MEQ/100ML 100 ML IV SCH ×2 (08:00→09:15)
[2024-01-04 09:07] LABS: Anisocytosis Moderate; Platelet Estimate Adequate
[2024-01-04 09:08] LABS: Ovalocytes FEW
[2024-01-04] MEDS: POTASSIUM CHL 20MEQ/100ML 100 ML IV SCH ×2 (09:47→18:45)
[2024-01-04] MEDS: IRON SUCROSE COMPLEX 100 ML IV SCH (13:30)
[2024-01-04] MEDS: EPOETIN ALFA-EPBX 10,000 UNIT/1ML VIAL SC ONE (16:33)
[2024-01-04] MEDS: TPN PER PHARMACY IV NR (20:15)
[2024-01-04] MEDS: SODIUM PHOSPHATES 20 MEQ in SODIUM CHL 0.9% 100 ML IV ONE (21:31)
[2024-01-05] VITALS (7 sets, daily range): BP systolic 119–142; BP diastolic 73–77; PULSE 73–95; RESP 17–21; TEMP 96.7–98.2; O2SAT 93–100
[2024-01-05 07:29] LABS: Alanine Aminotransferase 34 U/L (7-40); Albumin 2.7 g/dL (3.2-4.8); Alkaline Phosphatase 120 U/L (46-116); Anion Gap 7 (5-15); Aspartate Aminotransferase 24 U/L (13-40); BUN/Creatinine Ratio 40.5 (10.0-20.0); Blood Urea Nitrogen 15 mg/dL (9-23); Calcium 7.8 mg/dL (8.7-10.4); Carbon Dioxide 27 mmol/L (20-31); Chloride 105 mmol/L (98-107); GFR African American 223 mL/min; GFR Non-African American 185 mL/min; Glucose 128 mg/dL (74-106); Potassium 3.4 mmol/L (3.5-5.1); Sodium 139 mmol/L (136-145); Total Protein 4.3 g/dL (5.7-8.2)
[2024-01-05 07:30] LABS: Bilirubin, Total 0.4 mg/dL (0.2-1.0); Phosphorus 2.4 mg/dL (2.4-5.1)
[2024-01-05 07:38] LABS: Basophils # (auto) 0 10 ^3/uL (0-0.2); Basophils % (auto) 0.2 % (0.0-2.0); Eosinophils # (auto) 0.2 10 ^3/uL (0-0.8); Hematocrit 26.8 % (36.0-46.0); Hemoglobin 8.8 g/dL (12.2-16.2); Lymphocytes # (auto) 0.9 10 ^3/uL (0.4-5.4); Lymphocytes % (auto) 10.2 % (10.0-50.0); Mean Corpuscular Hemoglobin 27.6 pg (28.0-32.0); Mean Corpuscular Hgb Conc. 32.8 g/dL (32.0-36.0); Monocytes # (auto) 0.6 10 ^3/uL (0-1.3); Monocytes % (auto) 6.4 % (0.0-12.0); Neutrophils # (auto) 7.3 10 ^3/uL (1.6-8.6); Neutrophils % (auto) 81.2 % (37.0-80.0); Platelet Count (auto) 191 10^3/uL (140-450); Red Blood Cells 3.19 10^6/uL (4.0-5.20); Red Cell Distribution Width 23.1 % (11.8-14.3)
[2024-01-05] MEDS: POTASSIUM CHL 20MEQ/100ML 100 ML IV SCH (08:30)
[2024-01-05] MEDS ORDERED: TPN PER PHARMACY IV NR (20:00)
[2024-01-06 05:00] VITALS: BP 121/70; PULSE 69; RESP 19; TEMP 97.8; O2SAT 98
[2024-01-06 08:37] LABS: Basophils # (auto) 0 10 ^3/uL (0-0.2); Basophils % (auto) 0.6 % (0.0-2.0); Eosinophils # (auto) 0.2 10 ^3/uL (0-0.8); Eosinophils % (auto) 2.3 % (0.0-7.0); Hematocrit 32.2 % (36.0-46.0); Hemoglobin 10.7 g/dL (12.2-16.2); Lymphocytes # (auto) 1.1 10 ^3/uL (0.4-5.4); Lymphocytes % (auto) 14.9 % (10.0-50.0); Mean Corpuscular Hgb Conc. 33.4 g/dL (32.0-36.0); Monocytes # (auto) 0.6 10 ^3/uL (0-1.3); Monocytes % (auto) 7.5 % (0.0-12.0); Neutrophils # (auto) 5.7 10 ^3/uL (1.6-8.6); Neutrophils % (auto) 74.7 % (37.0-80.0); Nucleated Red Blood Cells % 0.2 %; Platelet Count (auto) 225 10^3/uL (140-450); Red Blood Cells 3.83 10^6/uL (4.0-5.20); Red Cell Distribution Width 24.6 % (11.8-14.3); White Blood Cell 7.6 10^3/uL (4.4-10.8)
[2024-01-06 08:41] LABS: Alanine Aminotransferase 30 U/L (7-40); Albumin 3.3 g/dL (3.2-4.8); Alkaline Phosphatase 161 U/L (46-116); Anion Gap 9 (5-15); Aspartate Aminotransferase 27 U/L (13-40); Blood Urea Nitrogen 8 mg/dL (9-23); Calcium 8.6 mg/dL (8.7-10.4); Carbon Dioxide 22 mmol/L (20-31); Chloride 106 mmol/L (98-107); Glucose 115 mg/dL (74-106); Potassium 3.5 mmol/L (3.5-5.1); Sodium 137 mmol/L (136-145)
[2024-01-06 08:42] LABS: Bilirubin, Total 0.5 mg/dL (0.2-1.0); Total Protein 5.6 g/dL (5.7-8.2)
[2024-01-06 09:39] VITALS: BP 118/76; PULSE 70; RESP 18; TEMP 97.9; O2SAT 98
[2024-01-06 13:00] VITALS: BP 107/74; PULSE 89; RESP 18; TEMP 97.6; O2SAT 98
[2024-01-06] MEDS ORDERED: IOHEXOL 300 MG/ML 100ML BOTTLE IJ ONE (15:06)
[2024-01-06] MEDS: HYDROcodone-ACET 5/325MG TAB PO PRN (15:24)
[2024-01-06 17:49] VITALS: BP 110/75; PULSE 88; RESP 18; TEMP 97.7; O2SAT 98
[2024-01-06 20:00] VITALS: PULSE 91; RESP 18; O2SAT 92
[2024-01-06 21:00] VITALS: BP 104/67; PULSE 91; RESP 18; TEMP 98; O2SAT 92
[2024-01-06] MEDS: levoFLOXacin 250 MG TAB PO ONE (21:00)
[2024-01-07] VITALS (8 sets, daily range): BP systolic 102–131; BP diastolic 57–82; PULSE 85–101; RESP 17–22; TEMP 36.8; O2SAT 96–99
[2024-01-07 08:55] LABS: Basophils # (auto) 0.1 10 ^3/uL (0-0.2); Basophils % (auto) 0.6 % (0.0-2.0); Eosinophils # (auto) 0.1 10 ^3/uL (0-0.8); Eosinophils % (auto) 0.8 % (0.0-7.0); Hematocrit 26.7 % (36.0-46.0); Hemoglobin 8.9 g/dL (12.2-16.2); Lymphocytes # (auto) 0.8 10 ^3/uL (0.4-5.4); Lymphocytes % (auto) 8.4 % (10.0-50.0); Mean Corpuscular Hemoglobin 27.6 pg (28.0-32.0); Mean Corpuscular Hgb Conc. 33.3 g/dL (32.0-36.0); Mean Corpuscular Volume 82.9 fL (80.0-100.0); Monocytes # (auto) 0.7 10 ^3/uL (0-1.3); Monocytes % (auto) 7.4 % (0.0-12.0); Neutrophils # (auto) 7.4 10 ^3/uL (1.6-8.6); Neutrophils % (auto) 82.8 % (37.0-80.0); Nucleated Red Blood Cells % 0.3 %; Platelet Count (auto) 213 10^3/uL (140-450); Red Blood Cells 3.21 10^6/uL (4.0-5.20)
[2024-01-07 09:14] LABS: Alanine Aminotransferase 20 U/L (7-40); Albumin 2.9 g/dL (3.2-4.8); Alkaline Phosphatase 147 U/L (46-116); Anion Gap 6 (5-15); Aspartate Aminotransferase 15 U/L (13-40); BUN/Creatinine Ratio 30.4 (10.0-20.0); Blood Urea Nitrogen 14 mg/dL (9-23); Calcium 8.1 mg/dL (8.7-10.4); Carbon Dioxide 24 mmol/L (20-31); Chloride 105 mmol/L (98-107); Glucose 106 mg/dL (74-106); Potassium 3.4 mmol/L (3.5-5.1); Sodium 135 mmol/L (136-145)
[2024-01-07 09:15] LABS: Bilirubin, Total 0.5 mg/dL (0.2-1.0); Total Protein 4.8 g/dL (5.7-8.2)
[2024-01-07] MEDS: levoFLOXacin 250 MG TAB PO SCH (10:00)
[2024-01-07] MEDS ORDERED: FERR1TAB36 PO (11:07)
[2024-01-07] MEDS ORDERED: LEVO-848 PO (11:07)
[2024-01-07] MEDS ORDERED: LEVO500T91 PO (11:10)
[2024-01-07] MEDS: POTASSIUM CHL 20MEQ/100ML 100 ML IV SCH (14:44)
== END 2024-01-07 20:02 | disposition home health service (06) | DRG 330 ==
LOC: CENTRAL 19:37
PROVIDERS: ADMIT Internal Medicine; ATTEND Internal Medicine
PROC: 0D9670Z Drainage of Stomach with Drainage Device, Via Natural or Artificial Opening (ICD-10-PCS; principal; 2023-12-28)
PROC: 0DBM8ZX Excision of Descending Colon, Via Natural or Artificial Opening Endoscopic, Diagnostic (ICD-10-PCS; 2023-12-30)
PROC: 0DBN8ZX Excision of Sigmoid Colon, Via Natural or Artificial Opening Endoscopic, Diagnostic (ICD-10-PCS; 2023-12-30)
PROC: 0DBP8ZZ Excision of Rectum, Via Natural or Artificial Opening Endoscopic (ICD-10-PCS; 2023-12-30)
PROC: 02HV33Z Insertion of Infusion Device into Superior Vena Cava, Percutaneous Approach (ICD-10-PCS; 2023-12-30)
PROC: B548ZZA Ultrasonography of Superior Vena Cava, Guidance (ICD-10-PCS; 2023-12-30)
PROC: 0D1L0Z4 Bypass Transverse Colon to Cutaneous, Open Approach (ICD-10-PCS; 2024-01-02)
PROC: 0DTG0ZZ Resection of Left Large Intestine, Open Approach (ICD-10-PCS; 2024-01-02)
PROC: 30233N1 Transfusion of Nonautologous Red Blood Cells into Peripheral Vein, Percutaneous Approach (ICD-10-PCS; 2024-01-03)
DX: K56.600 Partial intestinal obstruction, unspecified as to cause (principal); C18.7 Malignant neoplasm of sigmoid colon; E87.1 Hypo-osmolality and hyponatremia; I50.32 Chronic diastolic (congestive) heart failure; D50.9 Iron deficiency anemia, unspecified; E03.9 Hypothyroidism, unspecified; I11.0 Hypertensive heart disease with heart failure; G40.909 Epilepsy, unspecified, not intractable, without status epilepticus; K64.8 Other hemorrhoids; K62.1 Rectal polyp; E87.6 Hypokalemia; R74.01 Elevation of levels of liver transaminase levels; Z95.0 Presence of cardiac pacemaker; Z79.82 Long term (current) use of aspirin; Z87.891 Personal history of nicotine dependence
CPT/HCPCS: 36415; 36430; 36569; 71045; 71260; 74018; 74176; 74177; 74250; 76604; 80048; 80053; 80069; 81001; 82378; 82728; 82962; 83036; 83540; 83550; 83735; 83930; 83935; 84100; 84300; 84439; 84443; 84478; 84481; 84702; 85014; 85018; 85025; 85610; 85730; 86850; 86900; 86901; 86920; 87081; 93005; 93306; 96360; 96361; 96365; 97110; 97116; 97163; G0378; G0463; J0330; J1100; J1756; J1815; J1956; J2001; J2250; J2470; J2543; J2704; J3480; J3490; J7060; J7131

== ENCOUNTER → 2024-06-20 | Outpatient (CLI) | payer MEDICARE, OTHER ==
[~2024-06-20] MED LIST changes: +FERR1TAB36 PO; -GLUC1TAB18 PO; +LEVO-848 PO; +LEVO500T91 PO; -LOSA-534 PO; -MAGN400T40 PO
== END | disposition home or self-care (01) ==
LOC: Rad HDHVI 12:38
PROVIDERS: ATTEND Internal Medicine Cardiovascular Disease
DX: I08.8 Other rheumatic multiple valve diseases (principal); I11.0 Hypertensive heart disease with heart failure; I50.33 Acute on chronic diastolic (congestive) heart failure
CPT/HCPCS: 93306

== ENCOUNTER 2025-02-04 09:53 | Outpatient (CLI) | payer MEDICARE, OTHER ==
--- NOTE | 2025-02-05 12:52 | DVHSR ---
APPROVED REPORT EXAM: Two-dimensional and M-mode echocardiogram with Doppler and color Doppler. Surgery/Intervention Pacemaker: DIMENSIONS LVDd 4.5 (3.8-5.7cm) LA (2D) 4.7 (1.9-4.0cm) Aortic Root 3.4 (2.0-3.7cm) LVDs 2.5 (2.5-4.0cm) LA (MM) (1.9-4.0cm) Aortic Cusp Exc 1.8 (1.5-2.0cm) EF (%) 75.0 (55-70%) Rt. Atrium 3.4 (1.9-4.0cm) Asc. Aorta cm Mitral Valve Mitral Mitral Stenosis E wave 0.52m/s MV Mean GR. mmHg A wave 0.75m/s MV Peak GR. mmHg E/A ratio 0.7 2D MVA cm2 DECEL Time 329ms PRESS 1/2 Time 127ms IVRT ms Dop MVA 1.74cm2 Aortic Valve Aortic Valve Aortic Stenosis V1 1.38m/s AO Mean GR. 4mmHg V2 1.49m/s AO Peak GR. 9mmHg LVOT Diameter 1.5 (1.8-2.4cm) Doppler GISELA 1.64cm2 Pulmonic Valve V2 1.08m/s Tricuspid Valve TR Velocity 2.09m/s RVSP 20mmHg LEFT VENTRICLE The Left Ventricle is mildly dilated. There is Left ventricular hypertrophy present. The Ejection Fraction is 65-70%. RIGHT VENTRICLE The right ventricle is normal size. ATRIA The left atrium is mildly dilated. The right atrium size is normal. The interatrial septum is intact with no evidence for an atrial septal defect. MITRAL VALVE The mitral valve is normal in structure and function. Mitral regurgitation is mild. PULMONIC VALVE The pulmonic valve is not well visualized. There is pulmonic valvular regurgitation. TRICUSPID VALVE The tricuspid valve is grossly normal. Pacemaker wire seen in the right ventricle. There is trace tricuspid regurgitation. AORTIC VALVE The aortic valve opens well. No aortic regurgitation is present. GREAT VESSELS The aortic root is normal size. PERICARDIAL EFFUSION There is no pericardial effusion. Conclusion CONC LVH PACEMAKER LEAD SEEN EF >65% LAE MILD MR MILD AU
== END 2025-02-04 17:00 | disposition home or self-care (01) ==
LOC: Rad HDHVI 09:53
PROVIDERS: ATTEND Internal Medicine Cardiovascular Disease
DX: I08.8 Other rheumatic multiple valve diseases (principal); I11.0 Hypertensive heart disease with heart failure; I50.33 Acute on chronic diastolic (congestive) heart failure
CPT/HCPCS: 93306